=== PATIENT | female | born 1975 | race Caucasian/White ===

== ENCOUNTER 2021-09-02 13:28 | Observation (INO) ==
[2021-09-02 14:55] LABS: Basophils % 0.5 %; Eosinophils % 0.5 %; Hematocrit 40.7 % (35.3-44.9); Hemoglobin 13.3 g/dL (11.5-15.4); Immature Granulocytes % 0.5 % (0-4); Lymphocytes # 1.2 K/mcL (0.6-4.6); Mean Corpuscular HGB Conc 32.7 g/dL (31.6-35.5); Mean Corpuscular Hemoglobin 30.5 pg (28.0-33.3); Mean Corpuscular Volume 93.3 fL (83.0-100.0); Mean Platelet Volume 9.3 fL (9.4-12.4); Monocytes # 0.5 K/mcL (0.0-1.3); Monocytes % 8.3 %; Neutrophils # 3.8 K/mcL (1.6-8.9); Platelet Count 264 K/mcL (140-400); Red Blood Count 4.36 M/mcL (3.82-4.97); Red Cell Distribution Width 13.7 % (11.5-14.5); Segmented Neutrophils % 69.2 %; White Blood Count 5.5 K/mcL (4.3-11.1)
[2021-09-02 15:17] LABS: BUN/Creatinine Ratio 13 (6-26); Blood Urea Nitrogen 10 mg/dL (6-20); Calcium 8.6 mg/dL (8.6-10.3); Carbon Dioxide 23 mEq/L (23-29); Chloride 107 mEq/L (98-107); Glucose 112 mg/dL (70-105); Osmolality,Calculated 286 (280-300); Potassium 3.5 mEq/L (3.5-5.1); Sodium 138 mEq/L (136-145); Troponin I < 0.03 ng/mL (< 0.04); eGFR For African Americans > 60 (> 60); eGFR For Non-African Americans > 60 (> 60)
[2021-09-02] MEDS ORDERED: Isovue-370 500 ML BOTTLE IVP ONE ×2 (15:26→18:59)
[2021-09-02] MEDS ORDERED: Naloxone 0.4 MG/ML INJ IVP PRN (17:45)
[2021-09-02] MEDS ORDERED: Ondansetron 4 MG/2 ML VIAL IVP PRN (17:45)
[2021-09-02] MEDS ORDERED: Acetaminophen 325 MG TABLET PO PRN (17:45)
[2021-09-02] MEDS ORDERED: Perflutren Lipid Microsphere 1.3 ML in 0.9 % Sodium Chloride 8.7 ML IVP PRN (17:48)
[2021-09-02 19:59] LABS: Magnesium 1.8 mg/dL (1.6-2.6); Phosphorous 3.7 mg/dL (2.7-4.5)
[2021-09-02 20:03] LABS: Troponin I < 0.03 ng/mL (< 0.04)
[2021-09-02 23:01] LABS: Thyroid Stimulating Hormone 1.653 mcIU/mL (0.340-5.600)
[2021-09-03 04:23] LABS: Hematocrit 37.9 % (35.3-44.9); Hemoglobin 12.2 g/dL (11.5-15.4); Mean Corpuscular HGB Conc 32.2 g/dL (31.6-35.5); Mean Corpuscular Hemoglobin 29.9 pg (28.0-33.3); Mean Corpuscular Volume 92.9 fL (83.0-100.0); Mean Platelet Volume 10.2 fL (9.4-12.4); Platelet Count 208 K/mcL (140-400); Red Blood Count 4.08 M/mcL (3.82-4.97); Red Cell Distribution Width 13.9 % (11.5-14.5); White Blood Count 4.6 K/mcL (4.3-11.1)
[2021-09-03 04:30] LABS: Prothrombin Time 11.3 Seconds (9.4-12.1)
[2021-09-03 04:32] LABS: Activated Partial Thrombo Time 28.2 Seconds (26.0-36.0)
[2021-09-03 04:38] LABS: BUN/Creatinine Ratio 12 (6-26); Blood Urea Nitrogen 9 mg/dL (6-20); Calcium 8.7 mg/dL (8.6-10.3); Carbon Dioxide 24 mEq/L (23-29); Chloride 106 mEq/L (98-107); Chol/HDL Ratio 2.6 (0-4.9); Cholesterol 143 mg/dL (< 200); Glucose 96 mg/dL (70-105); HDL Cholesterol 54 mg/dL (40-59); LDL Cholesterol,Calculated 74 mg/dL (< 100); Osmolality,Calculated 285 (280-300); Potassium 3.9 mEq/L (3.5-5.1); Sodium 138 mEq/L (136-145); Triglycerides 75 mg/dL (< 150); eGFR For African Americans > 60 (> 60); eGFR For Non-African Americans > 60 (> 60)
[2021-09-03 12:41] LABS: Troponin I < 0.03 ng/mL (< 0.04)
[2021-09-03] MEDS ORDERED: Ketorolac 30 MG/ML VIAL IVP ONE (13:32)
[2021-09-03 14:04] LABS: C-Reactive Protein < 5 mg/L (Less than 10)
[2021-09-03] MEDS ORDERED: Ketorolac 30 MG/ML VIAL IVP PRN (16:18)
[2021-09-03] MEDS ORDERED: Doxycycline 100 MG in 0.9 % Sodium Chloride Mini Bag 100 ML IVPB ONE (21:00)
[2021-09-03] MEDS ORDERED: Gabapentin 100 MG CAPSULE PO ONE (22:16)
[2021-09-04 07:15] VITALS: O2SAT 96
[2021-09-04] MEDS: Gabapentin 100 MG CAPSULE PO SCH ×2 (09:21→15:12)
[2021-09-04] MEDS ORDERED: Doxycycline 100 MG in 0.9 % Sodium Chloride Mini Bag 100 ML IVPB SCH (10:26)
[2021-09-04 10:42] VITALS: BP 117/75; PULSE 42; TEMP 97.1
[2021-09-04 13:26] LABS: Alanine Aminotransferase 8 Units/L (7-52); Albumin/Globulin Ratio 1.7 (1.1-2.2); Alkaline Phosphatase 31 Units/L (34-104); Aspartate Amino Transferase 13 Units/L (13-39); Bilirubin,Direct 0.1 mg/dL (0.0-0.2); Bilirubin,Indirect 0.6 mg/dL (0.0-1.0); Bilirubin,Total 0.7 mg/dL (0.3-1.0); Globulin 2.4 g/dL (2.4-3.5); Total Protein 6.4 g/dL (6.4-8.9)
[2021-09-04] MEDS ORDERED: Doxycycline 100 MG CAPSULE PO SCH (21:00)
== END 2021-09-04 15:54 | disposition home or self-care (01) ==
LOC: EMEROOARM 13:28 → 2NENU 13:28 → SUATTDRO 17:24 → 2NENU 17:40
PROVIDERS: ADMIT Student in an Organized Health Care Education/Training Program; ATTEND Internal Medicine